=== PATIENT | female | born 1985 ===

== ENCOUNTER 2021-05-22 17:31 | Emergency (ER) | payer MEDICAID, OTHER ==
[~2021-05-22] VITALS: Ht 162.6 cm; Wt 113.4 kg
[2021-05-22 21:27] VITALS: BP 139/70
== END 2021-05-22 22:36 | disposition home or self-care (01) ==
LOC: ER 17:31
DX: S53.492A Other sprain of left elbow, initial encounter (principal); M62.838 Other muscle spasm; R07.89 Other chest pain; E66.9 Obesity, unspecified; Z68.41 Body mass index [BMI] 40.0-44.9, adult; Z88.1 Allergy status to other antibiotic agents; Z91.040 Latex allergy status; Z88.5 Allergy status to narcotic agent; V49.59XA Passenger injured in collision with other motor vehicles in traffic accident, initial encounter; Y93.89 Activity, other specified; Y92.488 Other paved roadways as the place of occurrence of the external cause; Y99.8 Other external cause status
CPT/HCPCS: 71045; 72040; 73070; 81025; 93005